=== PATIENT | female | born 1985 | race Two or more races ===

== ENCOUNTER 2020-08-22 10:25 | Outpatient (REF) | payer OTHER, SELFPAY | END 2020-08-22 10:26 | disposition home or self-care (01) | LOC: HO.LAB 10:25 | PROVIDERS: PCP Internal Medicine; Visit Provider Obstetrics & Gynecology | DX: R87.810 Cervical high risk human papillomavirus (HPV) DNA test positive (principal) | CPT/HCPCS: 88305; 99212 ==

== ENCOUNTER → 2020-09-26 15:35 | Outpatient (BNVA) | payer OTHER, SELFPAY | PROVIDERS: PCP Internal Medicine; Visit Provider Obstetrics & Gynecology | DX: R87.810 Cervical high risk human papillomavirus (HPV) DNA test positive (principal) | CPT/HCPCS: 99212 ==

== ENCOUNTER 2022-07-23 10:51 | Outpatient (REF) | payer OTHER, MEDICAID, SELFPAY ==
[2022-07-23 16:02] LABS: CT PCR NOT DETECTED (Not Detect.); NG PCR NOT DETECTED (Not Detect.)
[2022-07-29 04:46] LABS: HPV mRNA E6/E7 rflx Detected (Not Detected)
[2022-07-29 04:56] LABS: HPV 16 RNA NOT DETECTED (NOT DETECTED)
== END 2022-07-23 10:52 | disposition home or self-care (01) ==
LOC: HO.LNP 10:51
PROVIDERS: Visit Provider Obstetrics & Gynecology
DX: Z01.419 Encounter for gynecological examination (general) (routine) without abnormal findings (principal); Z11.51 Encounter for screening for human papillomavirus (HPV); N93.9 Abnormal uterine and vaginal bleeding, unspecified
CPT/HCPCS: 87491; 87591; 87624; 87625; 88142

== ENCOUNTER 2022-08-22 11:31 | Outpatient (REF) | payer OTHER, MEDICAID, SELFPAY ==
--- NOTE | ~2022-08-22 | US_ITS ---
EXAMINATION: US PELVIS CLINICAL INFORMATION: 37-year-old, abnormal uterine bleeding. LMP 07/11/2022 COMPARISON: Ultrasound dated 02/28/2019 TECHNIQUE: Ultrasound of the pelvis is performed using both transabdominal and transvaginal transducers along with Doppler. Transvaginal imaging is performed due to inadequate visualization transabdominally. FINDINGS: Uterus: The uterus is anteverted and measures 8.4 x 4.4 x 5.4 cm. Uterus is mildly globular in appearance with heterogeneous appearing myometrium. The double wall endometrial thickness is 1.1 mm. No visible fibroid. Adnexa: Both ovaries are visualized. There is normal color flow to the adnexa. There is no ovarian torsion. There is no pelvic ascites or fluid collection. Right ovary measures 2.0 x 1.7 x 1.2 cm. Left ovary measures 2.5 x 2.3 x 1.9 cm. US/US pelvic and transvaginal IMPRESSION: Uterus is globular in appearance with heterogeneous appearing myometrium. This is a nonspecific finding but can be seen in the setting of adenomyosis. Recommend further evaluation with pelvic MRI.
== END 2022-08-22 11:32 | disposition home or self-care (01) ==
LOC: HO.US 11:31
PROVIDERS: Visit Provider Obstetrics & Gynecology
DX: N93.9 Abnormal uterine and vaginal bleeding, unspecified (principal)
CPT/HCPCS: 76830; 76856

== ENCOUNTER 2022-09-04 11:18 | Outpatient (REF) | payer OTHER, MEDICAID, SELFPAY | END 2022-09-04 11:19 | disposition home or self-care (01) | LOC: HO.LNP 11:18 | PROVIDERS: Visit Provider Obstetrics & Gynecology | DX: N93.9 Abnormal uterine and vaginal bleeding, unspecified (principal); R87.610 Atypical squamous cells of undetermined significance on cytologic smear of cervix (ASC-US); R87.810 Cervical high risk human papillomavirus (HPV) DNA test positive; I10 Essential (primary) hypertension; E03.9 Hypothyroidism, unspecified | CPT/HCPCS: 57454; 58100; 58110; 81025; 88305 ==

== ENCOUNTER 2022-09-22 | Outpatient (REF) | payer OTHER, MEDICAID, SELFPAY ==
[2022-09-22 09:03] LABS: Hematocrit 36.5 % (37.0-47.0); Hemoglobin 12.1 g/dl (12.0-16.0); Mean Corpuscular HGB Conc 33.2 g/dl (31.0-35.0); Mean Corpuscular Hemoglobin 27.4 pg (27.0-33.0); Mean Corpuscular Volume 82.6 fL (80.0-98.0); Mean Platelet Volume 10.3 fL (9.4-12.3); Platelet Count 308 X10*3/uL (160-400); Red Blood Count 4.42 X10*6/uL (4.20-5.50); Red Cell Distribution Width 12.9 % (11.0-16.0); White Blood Count 7.4 X10*3/uL (4.8-10.8)
[2022-09-22 10:13] LABS: HCG Quantitative < 2 mIU/mL; TSH reflex Free T4 40.64 uIU/mL (0.32-4.0)
[2022-09-22 10:44] LABS: Free T4 (Free Thyroxine) 0.72 ng/dL (0.71-1.85)
== END 2022-09-22 00:01 | disposition home or self-care (01) ==
LOC: HO.LAB
PROVIDERS: Visit Provider Obstetrics & Gynecology
DX: R87.610 Atypical squamous cells of undetermined significance on cytologic smear of cervix (ASC-US) (principal); R87.810 Cervical high risk human papillomavirus (HPV) DNA test positive; N93.9 Abnormal uterine and vaginal bleeding, unspecified
CPT/HCPCS: 36415; 84439; 84443; 84702; 85027

== ENCOUNTER → 2022-09-22 08:06 | Outpatient (BNVA) | payer OTHER, SELFPAY | PROVIDERS: Visit Provider Obstetrics & Gynecology | DX: R87.610 Atypical squamous cells of undetermined significance on cytologic smear of cervix (ASC-US) (principal); R87.810 Cervical high risk human papillomavirus (HPV) DNA test positive; N93.9 Abnormal uterine and vaginal bleeding, unspecified | CPT/HCPCS: 36415; 85027 ==

== ENCOUNTER 2023-02-03 08:16 | Outpatient (REF) | payer OTHER, MEDICAID, SELFPAY ==
[2023-02-03 09:07] LABS: Hematocrit 36.6 % (37.0-47.0); Mean Corpuscular HGB Conc 32.8 g/dl (31.0-35.0); Mean Corpuscular Hemoglobin 27.5 pg (27.0-33.0); Mean Corpuscular Volume 83.8 fL (80.0-98.0); Mean Platelet Volume 10.5 fL (9.4-12.3); Platelet Count 326 X10*3/uL (160-400); Red Blood Count 4.37 X10*6/uL (4.20-5.50); Red Cell Distribution Width 12.9 % (11.0-16.0); White Blood Count 6.6 X10*3/uL (4.8-10.8)
[2023-02-03 09:40] LABS: Alanine Aminotransferase 57 U/L (0-31); Albumin Level 4.3 g/dL (3.5-5.0); Alkaline Phosphatase 92 U/L (39-117); Anion Gap 10 (12-20); Aspartate Amino Transferase 36 U/L (5-31); Bilirubin Total 0.3 mg/dL (0.0-1.0); Blood Urea Nitrogen 6 mg/dL (9-16); Calcium 9.1 mg/dL (8.4-10.2); Carbon Dioxide 29 mmol/L (22-29); Chloride 104 mmol/L (96-108); Cholesterol 246 mg/dL; Estimated Glomerular Filt Rate > 60; Glucose Fasting 89 mg/dL (60-99); HDL Cholesterol 31 mg/dL; Potassium 4.3 mmol/L (3.3-5.1); Sodium 139 mmol/L (135-145); Total Protein 7.2 g/dL (6.5-8.0); Triglycerides 569 mg/dL
[2023-02-03 11:14] LABS: Free T4 (Free Thyroxine) 0.79 ng/dL (0.71-1.85)
[2023-02-03 11:18] LABS: Appearance Urine Clear; Color Urine Yellow; Glucose Urine UA Negative (Negative); Leukocyte Esterase Urine Small (1+) (Negative); Nitrite Urine Negative (Negative); PH 5.5 (5.0-9.0); Specific Gravity - Urine 1.015 (1.005-1.025); UMIC TRIGGER UA YES; Urine Blood Trace (Negative); Urine Ketones Negative (Negative); Urine Protein Negative (Neg-Trace)
[2023-02-03 11:36] LABS: Bacteria Urine Trace (None Seen); Hyaline Casts Urine 0-2 /LPF (0-2); RBC Urine 0-2 /HPF (0-2); WBC Urine 21-50 /HPF (0-5)
== END 2023-02-03 08:17 | disposition home or self-care (01) ==
LOC: HO.LAB 08:16
PROVIDERS: PCP Hospitalist; Visit Provider Hospitalist
DX: Z00.00 Encounter for general adult medical examination without abnormal findings (principal); I10 Essential (primary) hypertension; E03.9 Hypothyroidism, unspecified; N93.9 Abnormal uterine and vaginal bleeding, unspecified
CPT/HCPCS: 36415; 80053; 80061; 81001; 84439; 84443; 85027

== ENCOUNTER 2023-02-20 08:45 | Outpatient (REF) | payer OTHER, MEDICAID, SELFPAY ==
[2023-02-20 09:59] LABS: Appearance Urine Cloudy; Color Urine Yellow; Glucose Urine UA Negative (Negative); Leukocyte Esterase Urine Moderate (2+) (Negative); Nitrite Urine Negative (Negative); PH 5.5 (5.0-9.0); Specific Gravity - Urine 1.015 (1.005-1.025); UMIC TRIGGER UA YES; Urine Blood Trace (Negative); Urine Ketones Negative (Negative); Urine Protein Negative (Neg-Trace)
[2023-02-20 10:04] LABS: Bacteria Urine 1+ (None Seen); Hyaline Casts Urine 0-2 /LPF (0-2); RBC Urine 0-2 /HPF (0-2); WBC Urine 21-50 /HPF (0-5)
[2023-02-20 11:16] LABS: TSH reflex Free T4 9.92 uIU/mL (0.32-4.0)
[2023-02-20 12:13] LABS: Free T4 (Free Thyroxine) 1.02 ng/dL (0.71-1.85)
== END 2023-02-20 08:46 | disposition home or self-care (01) ==
LOC: HO.LAB 08:45
PROVIDERS: PCP Hospitalist; Visit Provider Hospitalist
DX: E03.9 Hypothyroidism, unspecified (principal); Z13.89 Encounter for screening for other disorder
CPT/HCPCS: 36415; 81001; 81003; 84439; 84443

== ENCOUNTER → 2023-02-23 11:35 | Outpatient (BNVA) | payer OTHER, MEDICAID, SELFPAY | PROVIDERS: PCP Hospitalist; Visit Provider Obstetrics & Gynecology | DX: Z13.89 Encounter for screening for other disorder (principal) ==

== ENCOUNTER 2023-06-09 15:23 | Outpatient (AMB) | payer OTHER, MEDICAID, SELFPAY ==
[2023-06-09 15:29] VITALS: BP 144/82; PULSE 95; RESP 12; TEMP 37.4; O2SAT 98; BMI 31.0
--- NOTE | 2023-06-09 15:29 | A.OFFPC_ITS ---
Vital Signs 06/09/23 15:29 06/09/23 15:50 Height 5 ft 6 in Weight 192 lb BMI 31.0 BP 144/82 H 130/80 Blood Pressure Location Lt brachial Lt brachial Position Sitting Sitting Respiration 12 Pulse 95 Pulse Source Pulse Oximeter Temp 99.4 F Temp Source Temporal Artery Scan Pulse Oximetry (%) 98 Oxygen Delivery Method Room Air Intake Visit Reasons: 1 mon fu for htn and new medication Intake Note: Patient states that she has been experiencing bodyaches, headaches, and has a metal like taste every time she eats. Patient states that when she first started taking levothyroxine it was causing her to have a cough but now she states that her body got use to it and shes no longer having that problem. Council Member Required: No Accompanied by: Self / Same As Patient Allergies No Known Allergies [No Known Allergies*] Allergy (Verified 06/09/23 15:44) Medication List - Last Reconciled 06/09/23 by Lyubov Cline CNP blood pressure test kit-large As directed levothyroxine (Synthroid) 125 mcg PO DAILY 1 month lisinopril 5 mg PO BID progesterone micronized (Prometrium) 200 mg PO BEDTIME 10 days Tobacco use date assessed: 01/21/23 Dental Screening Dental Screen Date: 06/09/23 Did you have a dental visit in the last 12 months?: No Did you have a dental problem in the last 6 months where you did not have access to dental care?: No Was dental information given to patient?: Yes HPI HPI Comments History of Present Illness Details 30-year-old female presents for hypertension follow-up She is on Lisinopril 5 mg twice daily which he notes she has been taking as prescribed. She reports fever with a temp of 100-103, headache, body aches, and metallic taste for the past 3 days. She denies sore throat, cough, fatigue, weakness. She denies sick contact. She denies viral testing. [facility] Medical History Cholecystectomy planned History of LEEP (loop electrosurgical excision procedure) of cervix complicating Hypertension Hypothyroidism Surgical History Hx of cholecystectomy Social History Household Members: Significant Other Housing: Apartment Alcohol intake: current Alcohol intake frequency: holidays/special occasions only Patient Tobacco Use Status: Never used Tobacco e-Cigarette/Vaping Use: Never Used service: No Current occupational status: employed Current occupation: [employer] Sexual orientation: Straight/Heterosexual Gender identity: Female Cognitive needs: No Hearing needs: No Vision needs: No Female Reproductive History Menstrual Age of Menarche: 13 Questionnaire Thrive Questionnaire Date Thrive assessed: 01/21/23 MARTHA-7 AMB Questionnaire MARTHA-7 Date MARTHA - 7 assessed: 01/21/23 Source: Developed by Drs. Rinku Horner, Carina Alvarez, Dev Mccarthy and colleagues, with an educational jrezy from [employer]. Review of Systems Const Details: Const Denies chills, Denies fatigue, Reports fever(s), Reports headache(s) and Denies weakness ENT Reports as per HPI Card Denies chest pain, Denies lightheadedness, Denies dyspnea and Denies other (Palpitations) Resp Denies cough, Denies dyspnea, Denies wheezing and Denies other ( shortness of breath) GI Denies abdominal pain, Denies melena, Denies hematochezia, Denies change in bowel habits, Denies dyspepsia and Denies nausea Denies hematuria and Denies dysuria Musc Denies abnormal gait, Reports myalgias, Denies arthralgias, Denies numbness and Denies tingling Skin/Breast Denies rash, Denies unusual bruising and Denies wounds Neuro Denies abnormal gait, Denies dizziness, Reports headache(s), Denies memory loss, Denies numbness, Denies Sensory deficit (Neuro), Denies tingling and Denies weakness Psych Denies anxiety, Denies depression, Denies memory loss Endo Denies cold intolerance, Denies fatigue, Denies heat intolerance, Denies polydipsia and Denies polyuria Aller/Immun Denies wheezing Physical exam (Primary Care) Vital Signs: Last Vital Signs Temp 99.4 F 06/09/23 15:29 Pulse 95 06/09/23 15:29 Resp 12 06/09/23 15:29 BP 144/82 H 06/09/23 15:29 Pulse Ox 98 06/09/23 15:29 Oxygen Delivery Method Room Air 06/09/23 15:29 BMI result Body Mass Index 31.0 Tobacco/Smoking Status: Tobacco use Status Tobacco use date assessed 01/21/23 06/09/23 15:39 Patient Tobacco Use Status Never used Tobacco 06/09/23 15:39 e-Cigarette/Vaping Use Never Used 06/09/23 15:39 Thrive Assessment: Date of Thrive Assessment Date Thrive assessed 01/21/23 06/09/23 15:39 Const Other: General: no acute distress and well developed Nutritional Appearance: well nourished Orientation/consciousness: patient oriented x3 HENMT Head is normocephalic Bilateral ear canal and TM are normal Nasal turbinates and oropharynx are pink and moist Sinuses are nontender with palpation No auricular or cervical lymphadenopathy Eyes General: appearance normal, both eyes and all related structures Pupils: Equal, round and reactive pupils present EOM: EOMs intact bilaterally Resp Effort & Inspection: normal respiratory effort Auscultation: clear to auscultation bilaterally Cardio Rate: regular rate Rhythm: regular rhythm Heart sounds: S1 normal heart sound present, S2 normal heart sound present, no gallops, no murmurs and no rubs GI Palpation (GI): No Abdominal aortic bruit present, Soft to palpation, nontender, No hepatosplenomegaly present and No Rebound tenderness present Auscultation: normal bowel sounds General: Yes no CVA tenderness Back/Spine/Pelvis Back: no CVA tenderness Cervical Spine: cervical ROM normal and No Cervical spine tenderness Thoracic/Lumbar Spine: thoraco-lumbar ROM normal, No pain with thoraco-lumbar ROM, No thoracic spinal tenderness and No lumbar spinal tenderness Extrem General: Yes normal to inspection, No edema and No calf tenderness Skin General: warm and dry. Normal skin color. Normal skin turgor Neuro General: patient oriented x3, gait normal and no focal neuro deficit Cranial nerves: Yes Equal, round and reactive pupils present Cognition (Neuro): normal cognition Gait exam (Neuro): Normal gait present Sensory Exam: No Sensory deficit (Neuro) Psych Appearance: grossly normal Affect: normal affect Attitude: cooperative Thought process: Normal thought process present Assessment and Plan Assessment & Plan (1) Hypertension: Code(s): I10 - Essential (primary) hypertension Plan: Resting blood pressure is 130/80, within goal of less than 140/90 Continue with current treatment regimen Low-sodium diet encouraged Follow-up with PCP in 3 months or return sooner with concerns or symptoms Verbalized understanding and agreed with treatment plan. (2) Hypothyroidism: Code(s): E03.9 - Hypothyroidism, unspecified Plan: TSH was 9.92 and free T4 was normal in January. She notes her levothyroxine dose was not increased TSH/T4 ordered Continue with current treatment regimen Will review TSH/T4 results and make changes to current treatment regimen if warranted Verbalized understanding and agreed with treatment plan. (3) Viral infection: Code(s): B34.9 - Viral infection, unspecified Plan: Reports fever with a temp of 100-103, headache, body aches, and metallic taste for the past 3 days. Likely viral illness though possibly allergies. No exam evidence of bacterial infection Viral illness There is no antibiotic medication for viruses.? They must run their course.? Most average 5-7 days but 7-10 days is not uncommon and up to 14 days is still possible.? A cough is often the last symptom to resolve and this can last for weeks in some cases. Rest Hydrate well -? Drink plenty of fluids.? Especially water. Tylenol or ibuprofen for muscle aches, headache, fever/discomfort Cannot rule out COVID-19/RSV/Flu infection CBC ordered Nasal swab acquired and will be sent to the lab Return for new or worsening symptoms Verbalized understanding and agreed with treatment plan. Orders: Orders TSH reflex Free T4 Today I10 - Essential (primary) hypertension SARS-CoV2/FLU/RSV Today B34.9 - Viral infection, unspecified Complete Blood Count Auto Diff Today B34.9 - Viral infection, unspecified Coding Level of Care Code Est Pt Level 3 (84776) Diagnoses Hypertension I10 Hypothyroidism E03.9 Viral infection B34.9 Time Spent (min) 25
[2023-06-09 15:50] VITALS: BP 130/80
== END 2023-06-09 16:05 | disposition home or self-care (01) ==
PROVIDERS: PCP Hospitalist; Visit Provider Nurse Practitioner Family
DX: I10 Essential (primary) hypertension (principal); E03.9 Hypothyroidism, unspecified; B34.9 Viral infection, unspecified
CPT/HCPCS: 99213

== ENCOUNTER 2023-06-09 16:09 | Outpatient (REF) | payer OTHER, MEDICAID, SELFPAY ==
[2023-06-09 17:05] LABS: MANUAL DIFF FLAG NO
[2023-06-09 17:38] LABS: Basophils Percent Auto 0.6 % (0-2); Eosinophils Percent Auto 0.4 % (0-4); Hematocrit 38.2 % (37.0-47.0); Hemoglobin 12.7 g/dl (12.0-16.0); Imm Gran Abs Auto 0.02 X10*3/uL (0.00-0.03); Imm Gran Pct Auto 0.4 % (0.0-0.4); Lymphocytes Absolute Auto 1.2 X10*3/uL (1.2-4.9); Lymphocytes Percent Auto 23.5 % (20-40); Mean Corpuscular HGB Conc 33.2 g/dl (31.0-35.0); Mean Corpuscular Hemoglobin 27.1 pg (27.0-33.0); Mean Corpuscular Volume 81.4 fL (80.0-98.0); Mean Platelet Volume 9.9 fL (9.4-12.3); Monocytes Absolute Auto 0.3 X10*3/uL (0.1-1.2); Monocytes Percent Auto 5.8 % (2-11); Neutrophils Absolute Auto 3.5 x10*3/uL (2.0-8.3); Neutrophils Percent Auto 69.3 % (45-73); Platelet Count 259 X10*3/uL (160-400); Red Blood Count 4.69 X10*6/uL (4.20-5.50); Red Cell Distribution Width 13.2 % (11.0-16.0)
[2023-06-09 18:11] LABS: TSH reflex Free T4 6.99 uIU/mL (0.32-4.0)
[2023-06-09 18:49] LABS: Free T4 (Free Thyroxine) 0.91 ng/dL (0.71-1.85)
[2023-06-10 16:26] LABS: Influenza A PCR NEGATIVE (Negative); Influenza B PCR NEGATIVE (Negative); Resp Syncy Virus RNA Qual PCR NEGATIVE (Negative); SARS COV2 PCR INHOUSE NEGATIVE (Negative)
== END 2023-06-09 16:10 | disposition home or self-care (01) ==
LOC: HO.LAB 16:09
PROVIDERS: PCP Hospitalist; Visit Provider Nurse Practitioner Family
DX: B34.9 Viral infection, unspecified (principal); I10 Essential (primary) hypertension; Z20.822 Contact with and (suspected) exposure to COVID-19
CPT/HCPCS: 0241U; 36415; 84439; 84443; 85025

== ENCOUNTER 2023-09-02 13:46 | Outpatient (AMB) | payer OTHER, SELFPAY ==
[2023-09-02 13:48] VITALS: BP 120/64; PULSE 83; RESP 13; TEMP 37.2; O2SAT 97; BMI 30.8
--- NOTE | 2023-09-02 13:48 | MHC.PC.OV ---
Vital Signs 09/02/23 13:48 Height 5 ft 6 in Weight 191 lb BMI 30.8 BP 120/64 Blood Pressure Location Rt brachial Position Sitting Respiration 13 Pulse 83 Pulse Source Pulse Oximeter Temp 98.9 F Temp Source Oral Pulse Oximetry (%) 97 Oxygen Delivery Method Room Air Intake Visit Reasons: ? UTI Intake Note: Patient is here for evaluation of abdominal pain, burning with urination x1 day. Patient reports her and her have increased their sexual activity due to trying to have a baby and is likely the contributing factor to her urinary symptoms. Estate Planning Paralegal Required: No Accompanied by: Self / Same As Patient Allergies No Known Allergies [No Known Allergies*] Allergy (Verified 09/02/23 14:43) Medication List - Last Reconciled 09/02/23 by Lyubov Cline CNP blood pressure test kit-large As directed levothyroxine (Synthroid) 137 mcg PO DAILY 90 days lisinopril 5 mg PO BID 90 days Tobacco use date assessed: 01/21/23 HPI HPI Comments History of Present Illness Details 38-year-old female presents with complaints of suprapubic pain, urinary frequency, and burning at the end of urination. She notes that her symptoms started last night. She notes that she was nauseous and vomited yellow liquid on her way here. She notes that she has been sexually active, more than usual recently, with her as she is trying to get . She admits to wiping from front to back. She also admits to wearing nylon underwear sometimes. She denies bloody urine or discharge with urination. She denies fever, chills, body aches, fatigue, or weakness. [facility] Medical History Cholecystectomy planned History of LEEP (loop electrosurgical excision procedure) of cervix complicating Hypertension Hypothyroidism Surgical History Hx of cholecystectomy Social History Household Members: Significant Other Housing: Apartment Alcohol intake: current Alcohol intake frequency: holidays/special occasions only Patient Tobacco Use Status: Never used Tobacco e-Cigarette/Vaping Use: Never Used service: No Current occupational status: employed Current occupation: [employer] Sexual orientation: Straight/Heterosexual Gender identity: Female Cognitive needs: No Hearing needs: No Vision needs: No Female Reproductive History Menstrual Age of Menarche: 13 Questionnaire Thrive Questionnaire Date Thrive assessed: 01/21/23 MARTHA-7 AMB Questionnaire MARTHA-7 Date MARTHA - 7 assessed: 01/21/23 Source: Developed by Drs. Rinku Horner, Carina Alvarez, Dev Mccarthy and colleagues, with an educational jerzy from [facility]. Review of Systems Const Details: Const Denies chills, Denies fatigue, Denies fever(s), Denies headache(s) and Denies weakness ENT Denies dizziness and Denies headache(s) Card Denies chest pain, Denies lightheadedness, Denies dyspnea and Denies other (Palpitations) Resp Denies cough, Denies dyspnea, Denies wheezing and Denies other ( shortness of breath) GI Reports suprapubic pain, Denies melena, Denies hematochezia, Denies change in bowel habits, Denies dyspepsia and Denies nausea Reports as per HPI Musc Denies abnormal gait, Denies myalgias, Denies arthralgias, Denies numbness and Denies tingling Skin/Breast Denies rash, Denies unusual bruising and Denies wounds Neuro Denies abnormal gait, Denies dizziness, Denies headache(s), Denies memory loss, Denies numbness, Denies Sensory deficit (Neuro), Denies tingling and Denies weakness Psych Denies anxiety, Denies depression, Denies memory loss Endo Denies cold intolerance, Denies fatigue, Denies heat intolerance, Denies polydipsia and Denies polyuria Aller/Immun Denies wheezing Physical exam (Primary Care) Vital Signs: Last Vital Signs Temp 98.9 F 09/02/23 13:48 Pulse 83 09/02/23 13:48 Resp 13 09/02/23 13:48 BP 120/64 09/02/23 13:48 Pulse Ox 97 09/02/23 13:48 Oxygen Delivery Method Room Air 09/02/23 13:48 BMI result Body Mass Index 30.8 Tobacco/Smoking Status: Tobacco use Status Tobacco use date assessed 01/21/23 09/02/23 13:59 Patient Tobacco Use Status Never used Tobacco 09/02/23 13:59 e-Cigarette/Vaping Use Never Used 09/02/23 13:59 Thrive Assessment: Date of Thrive Assessment Date Thrive assessed 01/21/23 09/02/23 13:59 Const Other: General: no acute distress and well developed Nutritional Appearance: well nourished Orientation/consciousness: patient oriented [facility]: Yes normocephalic and Yes atraumatic Eyes General: appearance normal, both eyes and all related structures Pupils: Equal, round and reactive pupils present EOM: EOMs intact bilaterally Resp Effort & Inspection: normal respiratory effort Auscultation: clear to auscultation bilaterally Cardio Rate: regular rate Rhythm: regular rhythm Heart sounds: S1 normal heart sound present, S2 normal heart sound present, no gallops, no murmurs and no rubs GI Palpation (GI): No Abdominal aortic bruit present, Soft to palpation, tender suprapubic region, No hepatosplenomegaly present and No Rebound tenderness present Auscultation: normal bowel sounds General: Yes no CVA tenderness Back/Spine/Pelvis Back: no CVA tenderness Cervical Spine: cervical ROM normal and No Cervical spine tenderness Thoracic/Lumbar Spine: thoraco-lumbar ROM normal, No pain with thoraco-lumbar ROM, No thoracic spinal tenderness and No lumbar spinal tenderness Extrem General: Yes normal to inspection, No edema and No calf tenderness Skin General: warm and dry. Normal skin color. Normal skin turgor Neuro General: patient oriented x3, gait normal and no focal neuro deficit Cranial nerves: Yes Equal, round and reactive pupils present Cognition (Neuro): normal cognition Gait exam (Neuro): Normal gait present Sensory Exam: No Sensory deficit (Neuro) Psych Appearance: grossly normal Affect: normal affect Attitude: cooperative Thought process: Normal thought process present Results AMB Urinalysis Dipstick UR Leukocytes Large Last Edit by Ilene Campos CMA on 09/02/23 14:05 UR Nitrite Positive Last Edit by Ilene Campos CMA on 09/02/23 14:05 UR Urobilinogen Normal Last Edit by Ilene Campos CMA on 09/02/23 14:05 UR Protein 300 Last Edit by Ilene Campos CMA on 09/02/23 14:05 UR Ph 5.5 Last Edit by Ilene Campos CMA on 09/02/23 14:05 UR Blood Large Last Edit by Ilene Campos CMA on 09/02/23 14:05 UR Specific [place] 1.025 Last Edit by Ilene Campos CMA on 09/02/23 14:05 UR Ketone Negative Last Edit by Ilene Campos CMA on 09/02/23 14:05 UR Bilirubin Negative Last Edit by Ilene Campos CMA on 09/02/23 14:05 UR Glucose Negative Last Edit by Ilene Campos CMA on 09/02/23 14:05 AMB Test Urine AMB Test Urine Negative Last Edit by Ilene Campos CMA on 09/02/23 14:09 Results Reviewed Results Reviewed: Laboratory Last Values Urine pH (Clinic) 5.5 09/02/23 14:00 Specific [place] (Clinic) 1.025 09/02/23 14:00 Ur Protein (Clinic) 300 09/02/23 14:00 Ur Ketones (Clinic) Negative 09/02/23 14:00 Urine Blood (Clinic) Large 09/02/23 14:00 Urine Nitrite Positive 09/02/23 14:00 Urine Bilirubin (Clinic) Negative 09/02/23 14:00 Urobilinogen (Clinic) Normal 09/02/23 14:00 Leukocyte Esterase (Clinic) Large 09/02/23 14:00 Urine Glucose (Clinic) Negative 09/02/23 14:00 Tst Clinic Negative 09/02/23 14:00 Assessment and Plan Assessment & Plan (1) UTI (urinary tract infection): Code(s): N39.0 - Urinary tract infection, site not specified Qualifiers: Encounter type: initial encounter Plan: Patient present with suprapubic pain, urinary frequency, and burning with urination since yesterday Suprapubic tenderness to palpation Urine dip is positive for leukocytes, nitrite, RBC, and protein; negative hCG Macrobid and Pyridium ordered. Take as prescribed Adequate hydration encouraged Advised to avoid wearing nylon underwear Encouraged to slow down on sexual activities until fully healed Will send urine to the lab for culture and sensitivity Return with worsening or new symptoms Verbalized understanding and agreed with treatment plan. Orders: Orders AMB Urinalysis Dipstick Today Z13.9 - Encounter for screening, unspecified AMB HCG Urine Test Today R35.0 - Frequency of micturition UA CC w/rflx Micro + Cult Today N39.0 - Urinary tract infection, site not specified Medications: New phenazopyridine (Pyridium) 100 mg PO TID PRN 6 tabs 0RF pain 2 days nitrofurantoin monohyd/m-cryst 100 mg (Macrobid) must administer with a meal/food 100 mg PO Q12H 5 days 10 caps 0RF Coding Level of Care Code Est Pt Level 3 (50154) Diagnoses UTI (urinary tract infection) N39.0 Encounter type: initial encounter
== END 2023-09-02 14:57 | disposition home or self-care (01) ==
PROVIDERS: PCP Hospitalist; Visit Provider Nurse Practitioner Family
DX: N39.0 Urinary tract infection, site not specified (principal); R35.0 Frequency of micturition; Z32.02 Encounter for pregnancy test, result negative
CPT/HCPCS: 81002; 81025; 99213

== ENCOUNTER 2023-09-02 15:03 | Outpatient (REF) | payer OTHER, SELFPAY ==
[2023-09-03 12:40] LABS: Appearance Urine Turbid; Color Urine Dark Yellow; Glucose Urine UA Negative (Negative); Leukocyte Esterase Urine Large (3+) (Negative); Nitrite Urine Positive (Negative); PH 5.5 (5.0-9.0); UMIC TRIGGER UACC YES; Urine Blood Large (3+) (Negative); Urine Ketones Trace mg/dL (Negative); Urine Protein 300 (3+) mg/dL (Neg-Trace)
[2023-09-03 12:47] LABS: Bacteria Urine 4+ (None Seen); RBC Urine >20 /HPF (0-2); Squamous Epithelial Cell Urine 0-2 /HPF (0-2); UACC Culture Trigger YES; WBC Urine >50 /HPF (0-5)
== END 2023-09-02 15:04 | disposition home or self-care (01) ==
LOC: HO.LAB 15:03
PROVIDERS: Visit Provider Nurse Practitioner Family
DX: N39.0 Urinary tract infection, site not specified (principal)
CPT/HCPCS: 81001; 87086; 87088; 87186

== ENCOUNTER 2024-01-27 12:03 | Outpatient (AMB) | payer OTHER, SELFPAY ==
[2024-01-27 12:03] VITALS: BP 120/74; BMI 30.7
--- NOTE | 2024-01-27 12:03 | MHC.OFFVIS ---
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 No complaints. Last Pap/HPV was in 07/17 was ascus/HPV positive, colpo/biopsy was QUETA 1 [facility] Medical History History of LEEP (loop electrosurgical excision procedure) of cervix complicating Cholecystectomy planned Hypothyroidism Hypertension Surgical History Hx of cholecystectomy Family History Mother Diabetes HTN (hypertension) Social History Household Members: Significant Other Housing: Apartment Alcohol intake: current Alcohol intake frequency: holidays/special occasions only Patient Tobacco Use Status: Never used Tobacco e-Cigarette/Vaping Use: Never Used service: No Current occupational status: employed Current occupation: [employer] Sexual orientation: Straight/Heterosexual Gender identity: Female Cognitive needs: No Hearing needs: No Vision needs: No Female Reproductive History Menstrual Age of Menarche: 13 Duration of menses: 6-7 days Date of last menstrual period: 01/05/24 Total pregnancies: 0 Date of last pap smear: 07/24/22 Review of Systems Const All systems reviewed & are unremarkable except as noted in HPI and below Card Reports as per HPI Resp Reports as per HPI GI Reports as per HPI and Reports no additional complaints Reports as per HPI Physical Exam Vital Signs: Last Vital Signs BP 120/74 01/27/24 12:03 BMI result Body Mass Index 30.7 Const General: cooperative, healthy appearing and comfortable Chest Chest palpation & inspection: normal inspection of the chest and normal palpation of entire chest wall Breast/axilla inspection: normal inspection of the breasts and normal inspection of the axillae Breast/axilla palpation: normal palpation of the breasts, normal palpation of the axillae and no axillary lymphadenopathy Resp Effort & Inspection: normal respiratory effort Auscultation: clear to auscultation bilaterally Percussion: percussion normal Cardio Palpation: normal PMI Rate: regular rate Rhythm: regular rhythm Heart sounds: no murmurs and no rubs Peripheral pulses: Peripheral pulses 2+ throughout GI Inspection: Yes normal to inspection Palpation (GI): Soft to palpation, nontender, no guarding, not rigid and No hepatosplenomegaly present Percussion: Yes normal to percussion Auscultation: normal bowel sounds Rectal Exam - Female: deferred General: Yes bladder normal to palpation External Female Exam: No lesion Speculum Exam - Vagina: normal appearance of the vagina, normal palpation, normal vaginal discharge and not erythematous Speculum Exam - Cervix: normal appearance of the cervix and normal palpation Bimanual exam- vagina & uterus: normal bimanual exam, normal palpation, uterine size normal, bladder normal to palpation, consistency normal and normal palpation Bimanual Exam- Adnexa, other: normal adnexae, no masses and no tenderness Assessment & Plan Assessment & Plan (1) Well woman exam: Comment: 09/16 QUETA 1 Code(s): Z01.419 - Encounter for gynecological examination (general) (routine) without abnormal findings Plan: Cotesting done. Counseled the patient about the recommended dietary allowance of 1000 mg of Calcium & 600 IU of vitamin D. The patient was instructed to perform monthly self-breast exams and to schedule an annual exam in a year; All questions answered and the patient verbalized understanding. Instructed the patient to schedule annual exam in a year Coding Level of Care Code New Pt Prev Care 18-39yr([id number] Diagnoses Well woman exam Z01.419
== END 2024-01-27 13:43 | disposition home or self-care (01) ==
LOC: HO.HWS 12:03
PROVIDERS: PCP Hospitalist; Visit Provider Obstetrics & Gynecology
DX: Z01.419 Encounter for gynecological examination (general) (routine) without abnormal findings (principal)
CPT/HCPCS: 99395

== ENCOUNTER 2024-01-27 12:03 | Outpatient (REF) | payer OTHER, SELFPAY ==
[2024-02-02 04:18] LABS: HPV mRNA E6/E7 rflx Not Detected (Not Detected)
== END 2024-01-27 12:04 | disposition home or self-care (01) ==
LOC: HO.LNP 12:03
PROVIDERS: PCP Hospitalist; Visit Provider Obstetrics & Gynecology
DX: Z01.419 Encounter for gynecological examination (general) (routine) without abnormal findings (principal); Z11.51 Encounter for screening for human papillomavirus (HPV)
CPT/HCPCS: 87624; 88142

== ENCOUNTER 2024-03-09 19:18 | Emergency (ER) | payer OTHER, SELFPAY ==
[2024-03-09 19:28] VITALS: BP 184/100; PULSE 71; RESP 16; TEMP 36.9; O2SAT 100; BMI 29.9
--- NOTE | 2024-03-09 19:31 | ED.GENADULT ---
HPI - General Adult General Chief complaint: General Medical Stated complaint: blood clot under tongue, L arm numb Time Seen by Provider: 03/10/24 01:02 Source: patient Mode of arrival: ambulatory Limitations: no limitations History of Present Illness HPI narrative: Patient comes to the emergency room complaining of a cyst that popped on her tongue. Patient states that when she arrived to emergency room, she was feeling very anxious, had high blood pressure, states she forgot to take her lisinopril dose of 5 mg at home. Had right arm tingling which the resolved. At this time, patient is asymptomatic. Patient states that the cyst under the tongue is no longer present, has no chest pain or shortness of breath, known paresthesias. Related Data Previous Rx's ?Medication ?Instructions ?Recorded blood pressure test kit-large #1 ea 01/21/23 lisinopril 5 mg tablet 5 mg PO BID 90 days #180 tabs 08/02/23 levothyroxine 137 mcg tablet 137 mcg PO DAILY 90 days #90 tabs 02/18/24 (Synthroid) Allergies Allergy/AdvReac Type Severity Reaction Status Date / Time No Known Allergies Allergy Verified 03/09/24 19:29 [No Known Allergies*] Review of Systems Review of Systems: Constitutional : No Weight loss, No Fever, No Chills, No Night Sweats, No Fatigue, No Malaise ENT/Mouth: complaining of a cyst under the tongue which popped by itself, No Hearing loss, No Ear Pain, No Nasal Congestion, No Sinus Pain, No Hoarseness, No sore throat, No Rhinorrhea, No Swallowing Difficulty Eyes: No Eye Pain, No Swelling, No Redness, No Foreign Body, No Discharge, No Vision Changes Cardiovascular : No Chest Pain, No SOB, No Dyspnea on Exertion, No Orthopnea, No Edema, No Palpitations Respiratory : No Cough, No Sputum, No Wheezing, No Smoke Exposure, No Dyspnea Gastrointestinal : No Nausea, No Vomiting, No Diarrhea, No Constipation, No abdominal Pain, No Hematochezia, No Melena Genitourinary : no irregular bleeding, No Dysuria, No Urinary Frequency, No Hematuria, No Urinary Incontinence, No Urgency, No Flank Pain, No Urinary Flow Changes, No Hesitancy Musculoskeletal : No joint pain, No Myalgias, No Joint Swelling Skin : No Skin Lesions, No rash Neuro : No Weakness, No Numbness, complaining of right arm Paresthesias, No Loss of Consciousness, No Dizziness, No Headache Psych : No Anxiety/Panic, No Depression, No SI/HI/AH/VH, No Social Issues, Heme/Lymph: No Bruising, No Bleeding,No Lymphadenopathy Endocrine : No Polyuria, No Polydipsia, No Temperature Intolerance [facility] Past Medical History Medical History History of LEEP (loop electrosurgical excision procedure) of cervix complicating Cholecystectomy planned Hypothyroidism Hypertension Surgical History Hx of cholecystectomy Family History Family History Mother Diabetes HTN (hypertension) Social History Social History Household Members: Significant Other Housing: Apartment Alcohol intake: current Alcohol intake frequency: holidays/special occasions only Patient Tobacco Use Status: Never used Tobacco e-Cigarette/Vaping Use: Never Used Advance Directives: No Advance Directives Information Provided: No service: No Current occupational status: employed Current occupation: [employer] Sexual orientation: Straight/Heterosexual Gender identity: Female Cognitive needs: No Hearing needs: No Vision needs: No Physical Exam ED Vital Signs: Vital Signs - 24 hr 03/09/24 19:28 03/09/24 22:11 Temperature 98.4 F 97.3 F Pulse Rate 71 68 Respiratory Rate 16 20 Blood Pressure 184/100 H 128/95 H Pulse Oximetry 100 100 Oxygen Delivery Method Room Air Room Air BMI result Body Mass Index 29.9 Const Other: Appearance: Alert. Oriented X3. No acute distress. Eyes: Pupils equal, round and reactive to light. ENT: Pharynx normal. No cysts present on the tongue or in the lips Neck: Normal inspection. Neck supple. No lymph nodes noted. No crepitus CVS: Normal heart rate and rhythm. Pulses normal. Normal S1 and S2 Respiratory: No respiratory distress. Breath sounds normal. No Wheezing. No rales Abdomen: Soft and nontender. No rigidity. No distention. Skin: Skin warm and dry. Normal skin color. Normal skin turgor. Extremities: No lower extremity edema. No Lacerations. No Rash Neuro: Oriented X 3. No motor deficit. No sensory deficit. Moving all extremities. No slurred speech. CN 2 through 12 grossly intact NIH score 0 Psych: calm, cooperative, normal affect NIH Stroke Scale Level of Consciousness: Alert Level of Consciousness Questions: Answers both questions correctly Level of Consciousness Commands: Performs both tasks correctly Best Gaze: Normal Visual: No visual loss Facial Palsy: Normal Motor Arm (Right): No drift Motor Arm (Left): No drift Motor Leg (Right): No drift Motor Leg (Left): No drift Limb Ataxia: Absent Sensory: Normal Best Language: No aphasia Dysarthia: Normal Extinction and Inattention: No abnormality Score: 0 Course Course Course Narrative: This is a rapid medical exam performed by Jennifer Merlos NP: Additional HPI, ROS, PE not included below will be deferred to primary provider. Patient is a 38-year-old female presenting to the ED with complaint of dizziness and left arm numbness, hx HTN but did not take her lisinopril today, normally takes 5mg BID. Also states that when she was at work she was stuck in a vent and when she came out she noticed a small swollen area under her tongue. Hypertensive in triage. Plan: EKG labs Medical Decision Making Medical Decision Making [facility] Narrative: -I discussed the labs with the patient, patient hematology, chemistry, troponin and hCG negative. -my interpretation of EKG: Normal sinus rhythm, heart rate 68, no ST segment depression or elevation, nonspecific T-wave inversion in lead III, QTC 406 -at this time, patient is asymptomatic. Patient ready for discharge. -when patient came in, patient has had anxiety and high blood pressure. Which resolved, blood pressure now 128/95 without any medication. Differential Diagnosis Differential Diagnoses: The differential diagnosis associated with the presentation includes (Oral mucocele) Lab Data [facility] Lab Attestation statement: I reviewed the patient's lab results. 03/09/24 19:46 03/09/24 19:46 Labs: Lab Results 03/09/24 Range/Units 19:46 WBC 7.7 (4.8-10.8) X10*3/uL RBC 4.05 L (4.20-5.50) X10*6/uL Hgb 11.0 L (12.0-16.0) g/dl Hct 33.0 L (37.0-47.0) % MCV 81.5 (80.0-98.0) fL MCH 27.2 (27.0-33.0) pg MCHC 33.3 (31.0-35.0) g/dl RDW 13.3 (11.0-16.0) % Plt Count 271 (160-400) X10*3/uL MPV 9.9 (9.4-12.3) fL Immature Gran % (Auto) 0.3 (0.0-0.4) % Neut % (Auto) 58.3 (45-73) % Lymph % (Auto) 33.9 (20-40) % [place] % (Auto) 5.9 (2-11) % Eos % (Auto) 0.9 (0-4) % Baso % (Auto) 0.7 (0-2) % Lymph # (Auto) 2.6 (1.2-4.9) X10*3/uL [place] # (Auto) 0.5 (0.1-1.2) X10*3/uL Eos # (Auto) 0.1 (0.0-0.4) X10*3/uL Baso # (Auto) 0.1 (0.0-0.2) X10*3/uL Abs Immat Gran (auto) 0.02 (0.00-0.03) X10*3/uL Absolute Neuts (auto) 4.5 (2.0-8.3) x10*3/uL Absolute Nucleated RBC 0.000 (0.0-0.012) X10*3/uL Nucleated RBC % (auto) 0.0 (0.0-0.2) /100WBC Sodium 138 (135-145) mmol/L Potassium 4.3 (3.3-5.1) mmol/L Chloride 108 (96-108) mmol/L Carbon Dioxide 23 (22-29) mmol/L Anion Gap 11 L (12-20) BUN 14 (9-16) mg/dL Creatinine 0.72 (0.5-1.4) mg/dL Estim Creat Clear Calc 115.6 Estimated GFR > 60 Random Glucose 93 (60-115) mg/dL Calcium 9.0 (8.4-10.2) mg/dL Total Bilirubin 0.2 (0.0-1.0) mg/dL AST 19 (5-31) U/L ALT 15 (0-31) U/L Alkaline Phosphatase 85 (39-117) U/L Troponin I High Sens < 2.7 (<3.5-17.0) ng/L Total Protein 7.6 (6.5-8.0) g/dL Albumin 4.3 (3.5-5.0) g/dL Beta HCG, Quant < 2 mIU/mL Independent Interpretation I performed an independent interpretation of an: EKG Discharge Plan 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 If you have any worsening or new symptoms, please return to the emergency room or call 911 Prescriptions: No Action lisinopril 5 mg tablet 5 mg PO BID 90 Days Qty: 180 3RF levothyroxine [Synthroid] 137 mcg tablet 137 mcg PO DAILY 90 Days Qty: 90 1RF (DME) blood pressure test kit-large Kit See Rx Instructions .ROUTE .MEDSUPPLY Qty: 1 0RF Rx Instructions: As directed Print Language: Wolof
--- NOTE | 2024-03-09 19:33 | ECG_ITS ---
Test Reason : DIZZINESS Blood Pressure : / mmHG Vent. Rate : 068 BPM Atrial Rate : 068 BPM P-R Int : 166 ms QRS Dur : 086 ms QT Int : 382 ms P-R-T Axes : 057 081 021 degrees QTc Int : 406 ms Normal sinus rhythm with sinus arrhythmia Normal ECG No previous ECGs available Referred By: Sheila Merlos Electronically Signed By:NATAN RODRIGUEZ MD
[2024-03-09 19:51] LABS: Basophils Absolute Auto 0.1 X10*3/uL (0.0-0.2); Basophils Percent Auto 0.7 % (0-2); Eosinophils Absolute Auto 0.1 X10*3/uL (0.0-0.4); Eosinophils Percent Auto 0.9 % (0-4); Imm Gran Abs Auto 0.02 X10*3/uL (0.00-0.03); Imm Gran Pct Auto 0.3 % (0.0-0.4); Lymphocytes Absolute Auto 2.6 X10*3/uL (1.2-4.9); Lymphocytes Percent Auto 33.9 % (20-40); MANUAL DIFF FLAG NO; Mean Corpuscular HGB Conc 33.3 g/dl (31.0-35.0); Mean Corpuscular Hemoglobin 27.2 pg (27.0-33.0); Mean Corpuscular Volume 81.5 fL (80.0-98.0); Mean Platelet Volume 9.9 fL (9.4-12.3); Monocytes Absolute Auto 0.5 X10*3/uL (0.1-1.2); Monocytes Percent Auto 5.9 % (2-11); Neutrophils Absolute Auto 4.5 x10*3/uL (2.0-8.3); Neutrophils Percent Auto 58.3 % (45-73); Platelet Count 271 X10*3/uL (160-400); Red Blood Count 4.05 X10*6/uL (4.20-5.50); Red Cell Distribution Width 13.3 % (11.0-16.0); White Blood Count 7.7 X10*3/uL (4.8-10.8)
[2024-03-09 20:12] LABS: Alanine Aminotransferase 15 U/L (0-31); Albumin Level 4.3 g/dL (3.5-5.0); Alkaline Phosphatase 85 U/L (39-117); Anion Gap 11 (12-20); Aspartate Amino Transferase 19 U/L (5-31); Bilirubin Total 0.2 mg/dL (0.0-1.0); Blood Urea Nitrogen 14 mg/dL (9-16); Carbon Dioxide 23 mmol/L (22-29); Chloride 108 mmol/L (96-108); Creatinine Clr Calc Pharmacy 115.6; Estimated Glomerular Filt Rate > 60; Glucose Random 93 mg/dL (60-115); Potassium 4.3 mmol/L (3.3-5.1); Sodium 138 mmol/L (135-145); Total Protein 7.6 g/dL (6.5-8.0)
[2024-03-09 20:15] LABS: HCG Quantitative < 2 mIU/mL; Troponin-I High Sensitivity < 2.7 ng/L (<3.5-17.0)
[2024-03-09 22:11] VITALS: BP 128/95; PULSE 68; RESP 20; TEMP 36.3; O2SAT 100
--- NOTE | 2024-03-10 01:01 | PC.NURSE ---
pt states the bump under her tongue has reduced in size when pt bp came down to 128/95
[2024-03-10 01:20] VITALS: BP 133/71
[2024-03-10] MEDS: lisinopriL 5 MG TABLET PO (01:20)
[2024-03-10 01:23] VITALS: BP 133/71; PULSE 62; RESP 17; TEMP 36.4; O2SAT 98
[2024-03-10 01:25] VITALS: BP 133/71; PULSE 62; RESP 17; TEMP 36.4; O2SAT 98
== END 2024-03-10 01:25 | disposition home or self-care (01) ==
PROVIDERS: Registered Nurse Emergency; Emergency Provider Emergency Medicine
DX: K13.79 Other lesions of oral mucosa (principal); I10 Essential (primary) hypertension; R20.2 Paresthesia of skin; E03.9 Hypothyroidism, unspecified
CPT/HCPCS: 36415; 80053; 84484; 84702; 85025; 93005; 99283; 99284

== ENCOUNTER → 2024-03-09 19:33 | Outpatient (BNV) | payer OTHER, SELFPAY | PROVIDERS: Emergency Provider Emergency Medicine; Visit Provider Internal Medicine Cardiovascular Disease | DX: R42 Dizziness and giddiness (principal) | CPT/HCPCS: 93010 ==

== ENCOUNTER 2024-03-14 10:19 | Outpatient (REF) | payer OTHER, SELFPAY ==
[2024-03-14 10:38] LABS: MANUAL DIFF FLAG NO
[2024-03-14 11:20] LABS: Basophils Percent Auto 0.7 % (0-2); Eosinophils Absolute Auto 0.1 X10*3/uL (0.0-0.4); Eosinophils Percent Auto 1.2 % (0-4); Hematocrit 37.1 % (37.0-47.0); Imm Gran Abs Auto 0.02 X10*3/uL (0.00-0.03); Imm Gran Pct Auto 0.3 % (0.0-0.4); Lymphocytes Absolute Auto 1.9 X10*3/uL (1.2-4.9); Lymphocytes Percent Auto 32.4 % (20-40); Mean Corpuscular HGB Conc 32.3 g/dl (31.0-35.0); Mean Corpuscular Volume 83.4 fL (80.0-98.0); Mean Platelet Volume 10.7 fL (9.4-12.3); Monocytes Absolute Auto 0.3 X10*3/uL (0.1-1.2); Monocytes Percent Auto 5.6 % (2-11); Neutrophils Absolute Auto 3.5 x10*3/uL (2.0-8.3); Neutrophils Percent Auto 59.8 % (45-73); Platelet Count 300 X10*3/uL (160-400); Red Blood Count 4.45 X10*6/uL (4.20-5.50); Red Cell Distribution Width 13.2 % (11.0-16.0); White Blood Count 5.9 X10*3/uL (4.8-10.8)
[2024-03-14 12:06] LABS: Alanine Aminotransferase 12 U/L (0-31); Albumin Level 4.5 g/dL (3.5-5.0); Alkaline Phosphatase 93 U/L (39-117); Anion Gap 14 (12-20); Aspartate Amino Transferase 16 U/L (5-31); Bilirubin Total 0.3 mg/dL (0.0-1.0); Blood Urea Nitrogen 8 mg/dL (9-16); Calcium 9.4 mg/dL (8.4-10.2); Carbon Dioxide 22 mmol/L (22-29); Chloride 107 mmol/L (96-108); Cholesterol 185 mg/dL (<200); Estimated Glomerular Filt Rate > 60; Glucose Fasting 96 mg/dL (60-99); HDL Cholesterol 39 mg/dL (>40); LDL Cholesterol Calculated 121 mg/dL (<100); Potassium 4.4 mmol/L (3.3-5.1); Sodium 139 mmol/L (135-145); Total Protein 7.8 g/dL (6.5-8.0); Triglycerides 125 mg/dL (<150)
== END 2024-03-14 10:20 | disposition home or self-care (01) ==
LOC: HO.LAB 10:19
PROVIDERS: Visit Provider Nurse Practitioner Family
DX: Z00.00 Encounter for general adult medical examination without abnormal findings (principal); E03.9 Hypothyroidism, unspecified
CPT/HCPCS: 36415; 80053; 80061; 84443; 85025

== ENCOUNTER 2024-03-15 13:03 | Outpatient (AMB) | payer OTHER, SELFPAY ==
--- NOTE | 2024-03-15 13:04 | A.OFFPC_ITS ---
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: No Accompanied by: Self / Same As Patient Allergies No Known Allergies [No Known Allergies*] Allergy (Verified 03/15/24 13:29) Medication List - Last Reconciled 03/15/24 by Lyubov Cline CNP blood pressure test kit-large As directed levothyroxine (Synthroid) 137 mcg PO DAILY 90 days lisinopril 5 mg PO BID 90 days Tobacco use date assessed: 03/15/24 Dental Screening Dental Screen Date: 03/15/24 Did you have a dental visit in the last 12 months?: Yes Did you have a dental problem in the last 6 months where you did not have access to dental care?: No Was dental information given to patient?: Patient has dentist HPI HPI Comments History of Present Illness Details 38-year-old female presents for transfer of care and an extended physical exam Her former PCP is WILMAN who is no longer with the practice She has history of hypertension and hypothyroidism. She is on lisinopril 5 mg twice daily and levothyroxine 137 mcg daily. She admits to taking her medications as prescribed without adverse reactions She notes that she generally eats healthy and sleeps well. She denies structured/routine exercise She offers no complaints and denies acute symptoms at this time Last pap smear was on 01/27/2024: normal [facility] Medical History History of LEEP (loop electrosurgical excision procedure) of cervix complicating Cholecystectomy planned Hypothyroidism Hypertension Surgical History Hx of cholecystectomy Family History (Updated 03/15/24 @ 13:18 by SEAN Newsome) Mother Diabetes HTN (hypertension) Social History Household Members: Significant Other Housing: Apartment Alcohol intake: current Alcohol intake frequency: holidays/special occasions only Patient Tobacco Use Status: Never used Tobacco e-Cigarette/Vaping Use: Never Used service: No Current occupational status: employed Current occupation: [employer] Sexual orientation: Straight/Heterosexual Gender identity: Female Cognitive needs: No Hearing needs: No Vision needs: Yes Female Reproductive History Menstrual Age of Menarche: 13 Questionnaire PHQ-9 Over the last 2 weeks, how often have you been bothered by any of the following problems? 1. Little interest or pleasure in doing things: not at all 2. Feeling down, depressed, or hopeless: not at all 3. Trouble falling or staying asleep, or sleeping too much: not at all 4. Feeling tired or having little energy: not at all 5. Poor appetite or overeating: not at all 6. Feeling bad about yourself - or that you are a failure or have let yourself or your family down: not at all 7. Trouble concentrating on things, such as reading the newspaper or watching television: not at all 8. Moving or speaking so slowly that other people could have noticed. Or the opposite - being so fidgety or restless that you have been moving around a lot more than usual: not at all 9. Thoughts that you would be better off or of hurting yourself in some way: not at all Total score: 0 Depression Screening Interpretation: Negative Depression Screening Done: Yes 33458 - PHQ-9 Billing: Yes Source: Developed by Drs. Rinku Horner, Carina Alvarez, Dev Mccarthy and colleagues, with an educational jerzy from [employer]. Thrive Questionnaire Date Thrive assessed: 03/15/24 I am a: Patient What is your living situation today?: I have a steady place to live Within the past 12 months, did the food you bought not last and you didn't have the money to get more?: Never true Within the past 12 months, did you worry whether your food would run out before you got money to buy more?: Never true Do you have trouble paying for medicines?: No Do you have trouble getting transportation to medical appointments?: No Do you have trouble paying your heating and electricity bill?: No Do you have trouble taking care of your child, family member or friend?: No Do you have trouble with day-to-day activities such as bathing, preparing meals, shopping, managing finances, etc.?: No Are you currently unemployed and looking for a job?: No Are you interested in more education?: Yes Please select the resources that you would like help with: Education and None Currently or been in a relationship where the following occur: no concerns reported THRIVE Score: 0 AUDIT C Alcohol Use Questionnaire (AUDIT-C) 1. How often do you have a drink containing alcohol?: Monthly or less 2. How many drinks containing alcohol do you have on a typical day when you are drinking?: 1 or 2 3. How often do you have six or more drinks on one occasion?: Never Total Score: 1 MARTHA-7 AMB Questionnaire MARTHA-7 Date MARTHA - 7 assessed: 03/15/24 Feeling nervous, anxious, or on edge: 0 = Not at all Not being able to stop or control worryin = Not at all Worrying too much about different things: 0 = Not at all Trouble relaxin = Not at all Being so restless that it is hard to sit still: 0 = Not at all Becoming easily annoyed or irritable: 0 = Not at all Feeling afraid as if something awful might happen: 0 = Not at all Total MARTHA-7 score (0-4 normal; 5-9 mild; 10-14 moderate; 15-21 severe): 0 Source: Developed by Drs. Rinku Horner, Carina Alvarez, Dev Mccarthy and colleagues, with an educational jerzy from [employer]. MARTHA-7 Assessment Billing MARTHA-7 Assessment Tool: MARTHA-7 Assessment 20074 Review of Systems Const Details: Denies chills, Denies fatigue, Denies fever(s), Denies headache(s) and Denies weakness HEENT Denies change in vision, Denies dizziness, Denies headache(s), Denies hearing loss, Denies nasal congestion, Denies sinus pain, Denies sinus pressure and Denies sore throat Card Denies chest pain, Denies lightheadedness, Denies dyspnea and Denies other (palpitations) Resp Denies cough, Denies dyspnea and Denies wheezing GI Denies abdominal pain, Denies melena, Denies hematochezia, Denies change in bowel habits, Denies dyspepsia and Denies nausea Denies hematuria and Denies dysuria Musc Denies abnormal gait, Denies myalgias, Denies arthralgias, Denies numbness and Denies tingling Skin/Breast Denies rash, Denies unusual bruising and Denies wounds Neuro Denies abnormal gait, Denies dizziness, Denies headache(s), Denies memory loss, Denies numbness, Denies Sensory deficit (Neuro), Denies tingling and Denies weakness Psych Denies anxiety, Denies depression and Denies memory loss Endo Denies cold intolerance, Denies fatigue, Denies heat intolerance, Denies polydipsia and Denies polyuria Bong/Lymph Denies easy bleeding and Denies easy bruising Aller/Immun Denies wheezing Physical exam (Primary Care) Vital Signs: Last Vital Signs Temp 97.2 F 03/15/24 13:05 Pulse 84 03/15/24 13:05 Resp 13 03/15/24 13:05 BP 122/70 03/15/24 13:05 Pulse Ox 98 03/15/24 13:05 Oxygen Delivery Method Room Air 03/15/24 13:05 BMI result Body Mass Index 29.9 Tobacco/Smoking Status: Tobacco use Status Tobacco use date assessed 03/15/24 03/15/24 13:19 Patient Tobacco Use Status Never used Tobacco 03/15/24 13:05 e-Cigarette/Vaping Use Never Used 03/15/24 13:05 PHQ-9: PHQ-9 Score PHQ-9: Total score 0 03/15/24 13:19 Depression Screening Interpretation: Negative Thrive Assessment: Date of Thrive Assessment Date Thrive assessed 03/15/24 03/15/24 13:19 Currently or been in a relationship where the following occur: no concerns reported Const Other: General: no acute distress, well developed, alert and awake Nutritional Appearance: well nourished Orientation/consciousness: patient oriented x3 HENMT Head: Yes normocephalic and Yes atraumatic Ears: hearing grossly normal bilaterally and TM's normal bilaterally General nose exam: Normal external nose present and Normal nares present Mouth: Normal oral and palatal mucosa present and moist mucous membranes Teeth and gingiva: dentition normal Throat: Yes oropharynx normal Eyes Pupils: Equal, round and reactive pupils present and Pupil accommodation reflex normal EOM: EOMs intact bilaterally Neck Neck: Yes normal visual inspection, Yes no lymphadenopathy and Yes trachea midline Thyroid: Thyroid normal Carotids: no bruits Lymphatic: no lymphadenopathy noted Chest Chest palpation & inspection: normal inspection of the chest Resp Effort & Inspection: normal respiratory effort Auscultation: clear to auscultation bilaterally Cardio Rate: regular rate Rhythm: regular rhythm Heart sounds: S1 normal heart sound present, S2 normal heart sound present, no gallops, no murmurs and no rubs Bruits: no abdominal aortic bruits and no carotid bruits GI Palpation (GI): No Abdominal aortic bruit present, Soft to palpation, nontender, No hepatosplenomegaly present and No Rebound tenderness present Auscultation: normal bowel sounds General: Yes no CVA tenderness Back/Spine/Pelvis Back: no CVA tenderness Cervical Spine: cervical ROM normal and No Cervical spine tenderness Thoracic/Lumbar Spine: thoraco-lumbar ROM normal, No pain with thoraco-lumbar ROM, No thoracic spinal tenderness and No lumbar spinal tenderness Skin General: warm and dry. Normal skin color. Normal skin turgor Lesions: no lesions Rashes: no rashes Trauma: no lacerations or abrasions Wounds: no wounds Nails: normal Neuro General: patient oriented x3, gait normal and CN's II-XI intact bilaterally Cranial nerves: Yes Equal, round and reactive pupils present Cognition (Neuro): normal cognition Gait exam (Neuro): Normal gait present Motor exam (neuro): 5/5 motor strength present throughout Sensory Exam: No Sensory deficit (Neuro) Deep tendon reflexes (DTR's): Right patellar reflex intensity grade: 2+ and Left patellar reflex intensity grade: 2+ Extrem General: Yes normal to inspection, No edema and No calf tenderness Psych Appearance: grossly normal Affect: normal affect Attitude: cooperative Thought process: Normal thought process present Assessment and Plan Assessment & Plan (1) Normal physical exam: Code(s): Z00.00 - Encounter for general adult medical examination without abnormal findings Plan: No significant physical restrictions limitations noted Continue current treatment regimen Healthy diet and routine exercise encouraged Follow-up in 3 months for hypertension and hypothyroidism or return sooner with symptoms or concerns Verbalized understanding and agreed with treatment plan (2) Hypertension: Code(s): I10 - Essential (primary) hypertension Plan: Blood pressure is 122/70, within goal of less than 140/90 Will change lisinopril to 10 mg once daily for compliance. Advised to take as prescribed Low-sodium diet encouraged Follow-up in 3 months Verbalized understanding and agreed with treatment plan (3) Hypothyroidism: Code(s): E03.9 - Hypothyroidism, unspecified Plan: Recent TSH is normal Continue current treatment regimen Advised to get TSH/T4 blood work done before her next visit Follow-up in 3 months Verbalized understanding and agreed with treatment plan (4) Low HDL (under 40): Code(s): E78.6 - Lipoprotein deficiency Plan: Recent labs reviewed; unremarkable findings except for slightly low HDL, 39 Advised to limit foods high in saturated fat and avoid foods high in trans fat Routine exercise encouraged Will monitor HDL level periodically Verbalized understanding and agreed with the treatment plan Orders: Orders TSH reflex Free T4 3 Months E03.9 - Hypothyroidism, unspecified Medications: New lisinopril 10 mg PO DAILY 90 days 90 tabs 1RF Discontinued lisinopril Discontinued Reason: Doctor's Order 5 mg PO BID 90 days 180 tabs 3RF I10 - Essential (primary) hypertension Coding Level of Care Code Est Pt Level 4 (14878) Est Pt Prev Care 18-39y(34723) Diagnoses Normal physical exam Z00.00 Hypertension I10 Hypothyroidism E03.9 Low HDL (under 40) E78.6 Additional Codes MARTHA-7 Assessment Billing - MARTHA-7 Assessment Tool: MARTHA-7 Assessment 20350 ([id number])
[2024-03-15 13:05] VITALS: BP 122/70; PULSE 84; RESP 13; TEMP 36.2; O2SAT 98; BMI 29.9
== END 2024-03-15 13:44 | disposition home or self-care (01) ==
PROVIDERS: Visit Provider Nurse Practitioner Family
DX: Z00.00 Encounter for general adult medical examination without abnormal findings (principal); I10 Essential (primary) hypertension; E03.9 Hypothyroidism, unspecified; E78.6 Lipoprotein deficiency
CPT/HCPCS: 99213; 99395

== ENCOUNTER 2024-06-30 11:27 | Outpatient (AMB) | payer OTHER, SELFPAY ==
--- NOTE | 2024-06-30 11:29 | MHC.PC.OV ---
Vital Signs 06/30/24 11:43 Height 5 ft 6 in Weight 190 lb 6 oz BMI 30.7 BP 138/80 Blood Pressure Location Lt brachial Position Sitting Respiration 16 Pulse 67 Pulse Source Pulse Oximeter Temp 98.4 F Temp Source Oral Pulse Oximetry (%) 98 Oxygen Delivery Method Room Air Intake Visit Reasons: F/U HTN, hypothyroidism Intake Note: patient here to follow up on HTN, Hypothyroidism Med Dir Required: No Is last menstrual period known: Yes Last menstrual period: 05/26/24 Post menopausal: No Patient : No Allergies No Known Allergies [No Known Allergies*] Allergy (Verified 06/30/24 11:42) Tobacco use date assessed: 06/30/24 Dental Screening Dental Screen Date: 06/30/24 Did you have a dental visit in the last 12 months?: Yes Did you have a dental problem in the last 6 months where you did not have access to dental care?: No Was dental information given to patient?: Patient has dentist HPI HPI Comments History of Present Illness Details 39-year-old female presents for hypertension and hypothyroidism follow-up She admits to taking her medications as prescribed without adverse reactions She denies acute symptoms symptoms She did not get TSH/T4 blood work done [facility] Medical History History of LEEP (loop electrosurgical excision procedure) of cervix complicating Cholecystectomy planned Hypothyroidism Hypertension Surgical History Hx of cholecystectomy Family History (Updated 03/15/24 @ 13:18 by SEAN Newsome) Mother Diabetes HTN (hypertension) Social History Household Members: Significant Other Housing: Apartment Alcohol intake: current Alcohol intake frequency: holidays/special occasions only Patient Tobacco Use Status: Never used Tobacco e-Cigarette/Vaping Use: Never Used service: No Current occupational status: employed Current occupation: [employer] Sexual orientation: Straight/Heterosexual Gender identity: Female Cognitive needs: No Hearing needs: No Vision needs: Yes Female Reproductive History Menstrual Age of Menarche: 13 Date of last menstrual period: 05/26/24 Questionnaire Thrive Questionnaire Date Thrive assessed: 03/15/24 MARTHA-7 AMB Questionnaire MARTHA-7 Date MARTHA - 7 assessed: 03/15/24 Source: Developed by Drs. Rinku Horner, Carina Alvarez, Dev Mccarthy and colleagues, with an educational jerzy from [employer]. Review of Systems Const Details: Const Denies chills, Denies fatigue, Denies fever(s), Denies headache(s) and Denies weakness ENT Denies dizziness and Denies headache(s) Card Denies chest pain, Denies lightheadedness, Denies dyspnea and Denies other (Palpitations) Resp Denies cough, Denies dyspnea, Denies wheezing and Denies other ( shortness of breath) GI Denies abdominal pain, Denies melena, Denies hematochezia, Denies change in bowel habits, Denies dyspepsia and Denies nausea Denies hematuria and Denies dysuria Musc Denies abnormal gait, Denies myalgias, Denies arthralgias, Denies numbness and Denies tingling Skin/Breast Denies rash, Denies unusual bruising and Denies wounds Neuro Denies abnormal gait, Denies dizziness, Denies headache(s), Denies memory loss, Denies numbness, Denies Sensory deficit (Neuro), Denies tingling and Denies weakness Psych Denies anxiety, Denies depression, Denies memory loss Endo Denies cold intolerance, Denies fatigue, Denies heat intolerance, Denies polydipsia and Denies polyuria Aller/Immun Denies wheezing Physical exam (Primary Care) Vital Signs: Last Vital Signs Temp 98.4 F 06/30/24 11:43 Pulse 67 06/30/24 11:43 Resp 16 06/30/24 11:43 BP 138/80 06/30/24 11:43 Pulse Ox 98 06/30/24 11:43 Oxygen Delivery Method Room Air 06/30/24 11:43 BMI result Body Mass Index 30.7 Tobacco/Smoking Status: Tobacco use Status Tobacco use date assessed 06/30/24 06/30/24 11:43 Patient Tobacco Use Status Never used Tobacco 06/30/24 11:32 e-Cigarette/Vaping Use Never Used 06/30/24 11:32 Thrive Assessment: Date of Thrive Assessment Date Thrive assessed 03/15/24 06/30/24 11:32 Const Other: General: no acute distress and well developed Nutritional Appearance: well nourished Orientation/consciousness: patient oriented x3 HENKS Head: Yes normocephalic and Yes atraumatic Eyes General: appearance normal, both eyes and all related structures Pupils: Equal, round and reactive pupils present EOM: EOMs intact bilaterally Resp Effort & Inspection: normal respiratory effort Auscultation: clear to auscultation bilaterally Cardio Rate: regular rate Rhythm: regular rhythm Heart sounds: S1 normal heart sound present, S2 normal heart sound present, no gallops, no murmurs and no rubs GI Palpation (GI): No Abdominal aortic bruit present, Soft to palpation, nontender, No hepatosplenomegaly present and No Rebound tenderness present Auscultation: normal bowel sounds General: Yes no CVA tenderness Back/Spine/Pelvis Back: no CVA tenderness Cervical Spine: cervical ROM normal and No Cervical spine tenderness Thoracic/Lumbar Spine: thoraco-lumbar ROM normal, No pain with thoraco-lumbar ROM, No thoracic spinal tenderness and No lumbar spinal tenderness Extrem General: Yes normal to inspection, No edema and No calf tenderness Skin General: warm and dry. Normal skin color. Normal skin turgor Neuro General: patient oriented x3, gait normal and no focal neuro deficit Cranial nerves: Yes Equal, round and reactive pupils present Cognition (Neuro): normal cognition Gait exam (Neuro): Normal gait present Sensory Exam: No Sensory deficit (Neuro) Psych Appearance: grossly normal Affect: normal affect Attitude: cooperative Thought process: Normal thought process present Assessment and Plan Assessment & Plan (1) Hypertension: Code(s): I10 - Essential (primary) hypertension Plan: Resting blood pressure is 138/80, slightly within goal of less than 140/90 Will increase lisinopril to 20 mg daily. Advised to take as prescribed Low-sodium diet encouraged Follow-up in 3 months or sooner with symptoms or concerns Verbalized understanding and agreed with the treatment plan (2) Hypothyroidism: Code(s): E03.9 - Hypothyroidism, unspecified Plan: She did not get TSH/T4 blood work done. She will do so today. Encouraged to continue current treatment regimen. Will review lab results and make changes as needed. Verbalized understanding and agreed with the plan Medications: New lisinopril 20 mg PO DAILY 90 days 90 tabs 1RF Discontinued lisinopril Discontinued Reason: Doctor's Order 10 mg PO DAILY 90 days 90 tabs 1RF Coding Level of Care Code Est Pt Level 3 (50014) Diagnoses Hypertension I10 Hypothyroidism E03.9
[2024-06-30 11:43] VITALS: BP 138/80; PULSE 67; RESP 16; TEMP 36.9; O2SAT 98; BMI 30.7
== END 2024-06-30 12:23 | disposition home or self-care (01) ==
PROVIDERS: Visit Provider Nurse Practitioner Family
DX: I10 Essential (primary) hypertension (principal); E03.9 Hypothyroidism, unspecified
CPT/HCPCS: 99213

== ENCOUNTER 2024-06-30 12:15 | Outpatient (REF) | payer OTHER, SELFPAY ==
[2024-06-30 14:58] LABS: Appearance Urine Clear; Color Urine Yellow; Glucose Urine UA Negative (Negative); Leukocyte Esterase Urine Small (1+) (Negative); Nitrite Urine Negative (Negative); UMIC TRIGGER UACC YES; Urine Blood Negative (Negative); Urine Ketones Negative (Negative); Urine Protein Negative (Neg-Trace)
[2024-06-30 15:09] LABS: Bacteria Urine None Seen (None Seen); Hyaline Casts Urine 0-2 /LPF (0-2); RBC Urine 0-2 /HPF (0-2); UACC Culture Trigger YES
== END 2024-06-30 12:16 | disposition home or self-care (01) ==
LOC: HO.WFDLDS 12:15
PROVIDERS: Visit Provider Nurse Practitioner Family
DX: Z00.00 Encounter for general adult medical examination without abnormal findings (principal); E03.9 Hypothyroidism, unspecified; N39.0 Urinary tract infection, site not specified
CPT/HCPCS: 36415; 81001; 84443; 87086

== ENCOUNTER 2024-10-03 11:01 | Outpatient (REF) | payer OTHER, SELFPAY ==
[2024-10-03 18:59] LABS: Influenza A PCR NEGATIVE (Negative); Influenza B PCR NEGATIVE (Negative); Resp Syncy Virus RNA Qual PCR NEGATIVE (Negative); SARS COV2 PCR INHOUSE NEGATIVE (Negative)
== END 2024-10-03 11:02 | disposition home or self-care (01) ==
LOC: HO.LAB 11:01
PROVIDERS: Visit Provider Nurse Practitioner Family
DX: I10 Essential (primary) hypertension (principal); J06.9 Acute upper respiratory infection, unspecified
CPT/HCPCS: 0241U; 96127

== ENCOUNTER 2024-10-03 11:01 | Outpatient (AMB) | payer OTHER, SELFPAY ==
--- NOTE | 2024-10-03 11:20 | MHC.PC.OV ---
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 Is last menstrual period known: Yes Last menstrual period: 09/26/24 Post menopausal: No Patient : No Allergies No Known Allergies [No Known Allergies*] Allergy (Verified 10/03/24 11:45) Medication List - Last Reconciled 10/03/24 by Lyubov Cline CNP blood pressure test kit-large As directed levothyroxine (Synthroid) 137 mcg PO DAILY 90 days lisinopril 20 mg PO DAILY 90 days Tobacco use date assessed: 10/03/24 Dental Screening Dental Screen Date: 10/03/24 Did you have a dental visit in the last 12 months?: Yes Did you have a dental problem in the last 6 months where you did not have access to dental care?: No Was dental information given to patient?: Patient has dentist HPI HPI Comments History of Present Illness Details The patient is a 39-year-old female presenting with an acute upper respiratory tract infection and management of essential hypertension. The patient reports symptoms consistent with an upper respiratory tract infection, including a sore throat, nasal congestion, and cough productive of dark green mucus. She has experienced nosebleeds and denies any fever or body aches but mentioned a sore throat and a single night of fever previously. The symptoms started with a cold about three weeks ago, and she reported being the first in her household to experience these symptoms. The condition is associated with headaches. She reports adherence to her prescribed lisinopril medication. She has been consistently limiting salt intake. Her hypertension management requires review, as current blood pressure readings exceed the target of less than 130 mmHg. [facility] Medical History History of LEEP (loop electrosurgical excision procedure) of cervix complicating Cholecystectomy planned Hypothyroidism Hypertension Surgical History Hx of cholecystectomy Family History (Updated 03/15/24 @ 13:18 by SEAN Newsome) Mother Diabetes HTN (hypertension) Social History Household Members: Significant Other Housing: Apartment Alcohol intake: current Alcohol intake frequency: holidays/special occasions only Patient Tobacco Use Status: Never used Tobacco e-Cigarette/Vaping Use: Never Used service: No Current occupational status: employed Current occupation: [employer] Sexual orientation: Straight/Heterosexual Gender identity: Female Cognitive needs: No Hearing needs: No Vision needs: Yes Female Reproductive History Menstrual Age of Menarche: 13 Date of last menstrual period: 09/26/24 Questionnaire PHQ-9 Over the last 2 weeks, how often have you been bothered by any of the following problems? 1. Little interest or pleasure in doing things: not at all 2. Feeling down, depressed, or hopeless: not at all 3. Trouble falling or staying asleep, or sleeping too much: not at all 4. Feeling tired or having little energy: not at all 5. Poor appetite or overeating: not at all 6. Feeling bad about yourself - or that you are a failure or have let yourself or your family down: not at all 7. Trouble concentrating on things, such as reading the newspaper or watching television: not at all 8. Moving or speaking so slowly that other people could have noticed. Or the opposite - being so fidgety or restless that you have been moving around a lot more than usual: not at all 9. Thoughts that you would be better off or of hurting yourself in some way: not at all Total score: 0 Depression Screening Interpretation: Negative Depression Screening Done: Yes Source: Developed by Drs. Rinku Horner, Carina Alvarez, Dev Mccarthy and colleagues, with an educational jerzy from [employer]. Thrive Questionnaire Date Thrive assessed: 10/03/24 I am a: Patient What is your living situation today?: I have a steady place to live Within the past 12 months, did the food you bought not last and you didn't have the money to get more?: I choose not to answer this question Within the past 12 months, did you worry whether your food would run out before you got money to buy more?: I choose not to answer this question Do you have trouble paying for medicines?: I choose not to answer this question Do you have trouble getting transportation to medical appointments?: No Do you have trouble paying your heating and electricity bill?: I choose not to answer this question Do you have trouble taking care of your child, family member or friend?: I choose not to answer this question Do you have trouble with day-to-day activities such as bathing, preparing meals, shopping, managing finances, etc.?: I choose not to answer this question Are you currently unemployed and looking for a job?: No Are you interested in more education?: No Please select the resources that you would like help with: None Currently or been in a relationship where the following occur: I choose not to answer THRIVE Score: 0 AUDIT C Alcohol Use Questionnaire (AUDIT-C) 1. How often do you have a drink containing alcohol?: Monthly or less 2. How many drinks containing alcohol do you have on a typical day when you are drinking?: 1 or 2 3. How often do you have six or more drinks on one occasion?: Never Total Score: 1 MARTHA-7 AMB Questionnaire MARTHA-7 Date MARTHA - 7 assessed: 10/03/24 Feeling nervous, anxious, or on edge: 0 = Not at all Not being able to stop or control worryin = Not at all Worrying too much about different things: 0 = Not at all Trouble relaxin = Not at all Being so restless that it is hard to sit still: 0 = Not at all Becoming easily annoyed or irritable: 1 = Several days Feeling afraid as if something awful might happen: 0 = Not at all Total MARTHA-7 score (0-4 normal; 5-9 mild; 10-14 moderate; 15-21 severe): 1 Source: Developed by Drs. Rinku Horner, Carina Alvarez, Dev Mccarthy and colleagues, with an educational jerzy from [employer]. MARTHA-7 Assessment Billing MARTHA-7 Assessment Tool: MARTHA-7 Assessment 87649 Review of Systems Const Details: Const Denies chills, Denies fatigue, Denies fever(s), Denies headache(s) and Denies weakness ENT Denies dizziness and Denies headache(s) Card Denies chest pain, Denies lightheadedness, Denies dyspnea and Denies other (Palpitations) Resp Denies cough, Denies dyspnea, Denies wheezing and Denies other ( shortness of breath) GI Denies abdominal pain, Denies melena, Denies hematochezia, Denies change in bowel habits, Denies dyspepsia and Denies nausea Denies hematuria and Denies dysuria Musc Denies abnormal gait, Denies myalgias, Denies arthralgias, Denies numbness and Denies tingling Skin/Breast Denies rash, Denies unusual bruising and Denies wounds Neuro Denies abnormal gait, Denies dizziness, Denies headache(s), Denies memory loss, Denies numbness, Denies Sensory deficit (Neuro), Denies tingling and Denies weakness Psych Denies anxiety, Denies depression, Denies memory loss Endo Denies cold intolerance, Denies fatigue, Denies heat intolerance, Denies polydipsia and Denies polyuria Aller/Immun Denies wheezing Physical exam (Primary Care) Vital Signs: Last Vital Signs Temp 97.9 F 10/03/24 11:25 Pulse 79 10/03/24 11:25 Resp 16 10/03/24 11:25 BP 147/79 H 10/03/24 11:25 Pulse Ox 97 10/03/24 11:25 Oxygen Delivery Method Room Air 10/03/24 11:25 BMI result Body Mass Index 31.5 Tobacco/Smoking Status: Tobacco use Status Tobacco use date assessed 10/03/24 10/03/24 11:30 Patient Tobacco Use Status Never used Tobacco 10/03/24 11:23 e-Cigarette/Vaping Use Never Used 10/03/24 11:23 PHQ-9: PHQ-9 Score PHQ-9: Total score 0 10/03/24 11:47 Depression Screening Interpretation: Negative Thrive Assessment: Date of Thrive Assessment Date Thrive assessed 10/03/24 10/03/24 11:30 Currently or been in a relationship where the following occur: I choose not to answer Const Other: General: no acute distress and well developed Nutritional Appearance: well nourished Orientation/consciousness: patient oriented x3 HENMT Head is normocephalic Bilateral ear canal and TM are normal Nasal turbinates and oropharynx are pink and moist Sinuses are nontender with palpation No auricular or cervical lymphadenopathy Eyes General: appearance normal, both eyes and all related structures Pupils: Equal, round and reactive pupils present EOM: EOMs intact bilaterally Resp Effort & Inspection: normal respiratory effort Auscultation: clear to auscultation bilaterally Cardio Rate: regular rate Rhythm: regular rhythm Heart sounds: S1 normal heart sound present, S2 normal heart sound present, no gallops, no murmurs and no rubs GI Palpation (GI): No Abdominal aortic bruit present, Soft to palpation, nontender, No hepatosplenomegaly present and No Rebound tenderness present Auscultation: normal bowel sounds General: Yes no CVA tenderness Back/Spine/Pelvis Back: no CVA tenderness Cervical Spine: cervical ROM normal and No Cervical spine tenderness Thoracic/Lumbar Spine: thoraco-lumbar ROM normal, No pain with thoraco-lumbar ROM, No thoracic spinal tenderness and No lumbar spinal tenderness Extrem General: Yes normal to inspection, No edema and No calf tenderness Skin General: warm and dry. Normal skin color. Normal skin turgor Neuro General: patient oriented x3, gait normal and no focal neuro deficit Cranial nerves: Yes Equal, round and reactive pupils present Cognition (Neuro): normal cognition Gait exam (Neuro): Normal gait present Sensory Exam: No Sensory deficit (Neuro) Psych Appearance: grossly normal Affect: normal affect Attitude: cooperative Thought process: Normal thought process present Coding Level of Care Code Est Pt Level 4 (72761) Diagnoses Hypertension I10 Viral upper respiratory illness J06.9 Additional Codes MARTHA-7 Assessment Billing - MARTHA-7 Assessment Tool: MARTHA-7 Assessment 88181 ([id number]) Assessment & Plan Assessment & Plan (1) Hypertension: Code(s): I10 - Essential (primary) hypertension Category: Medical Plan: Reinforced adherence to lisinopril as prescribed. Advised dietary salt limitation. Recommended re-evaluation of blood pressure. (2) Viral upper respiratory illness: Code(s): J06.9 - Acute upper respiratory infection, unspecified Category: Medical Plan: Likely viral illness though possibly allergies. No exam evidence of bacterial infection Viral illness There is no antibiotic medication for viruses.? They must run their course.? Most average 5-7 days but 7-10 days is not uncommon and up to 14 days is still possible.? A cough is often the last symptom to resolve and this can last for weeks in some cases. Rest Hydrate well -? Drink plenty of fluids.? Especially water. Tylenol or ibuprofen for muscle aches, headache, fever/discomfort Cannot rule out COVID-19/RSV/Flu infection Nasal swab acquired and will be sent to the lab May also take zyrtec daily Return for new or worsening symptoms Verbalized understanding and agreed with treatment plan. Plan I discussed with the patient the likelihood that her symptoms are due to a viral upper respiratory tract infection, possibly exacerbated by allergies. We reviewed the importance of daily antihistamine use and adherence to existing antihypertensive therapy. Given the current blood pressure readings, I plan to monitor this closely and reassessment was recommended. Follow-up will occur in three weeks to evaluate symptom progression and blood pressure control. Orders: Orders SARS-CoV2/FLU/RSV Today J06.9 - Acute upper respiratory infection, unspecified Patient Instructions: - Continue taking lisinopril daily as prescribed. - Start taking an antihistamine such as Zyrtec daily. - Limit dietary salt intake. - Return in three weeks for a blood pressure check and reassessment. - Seek medical attention if symptoms worsen or if there is no resolution of symptoms. Patient was informed and verbally consented to the use of an ambient scribe for clinic note documentation during this visit.
[2024-10-03 11:25] VITALS: BP 147/79; PULSE 79; RESP 16; TEMP 36.6; O2SAT 97; BMI 31.5
== END 2024-10-03 11:57 | disposition home or self-care (01) ==
PROVIDERS: Visit Provider Nurse Practitioner Family
DX: I10 Essential (primary) hypertension (principal); J06.9 Acute upper respiratory infection, unspecified

== ENCOUNTER 2025-06-14 10:30 | Outpatient (REF) | payer OTHER, SELFPAY ==
--- OUTSIDE RECORDS SUMMARY | 2025-06-14 12:22 | XMS_ITS | Continuity of Care Document ---
Author Organization [facility] Address [address] [facility] [address] [place] [address] Insurance Providers Payer Plan Claims Address Claims Phone Policy Number Group Number Relation Employer Guarantor Name Guarantor Guarantor Address Guarantor Phone [facility] [address] [address], [place] [address] tel:[phone] [id number] [phone] Self Audra Uriarte [address] [place] [address] [id number] [address] Problems Condition ICD9 code ICD10 code SNOMED code Start Date End Date S tatus Encounter for screening for other metabolic disorders Z13.228 Results Test Value / Unit Interpretation Reference Ran Comp. Metabolic Panel (14)[[id number]] Collected: 07/20/2023 04:34 PM Specimen Received: 07/20/2023 05:00 AM Source: [facility] Glucose [217974] 103 mg/dL H 70-99 mg/dL BUN [185614] 8 mg/dL 6-20 mg/dL Creatinine [566361] 0.60 mg/dL 0.57-1.0 0 mg/dL eGFR [328319] 118 mL/min/1.73 >59 mL/min/ 1.73 BUN/Creatinine Ratio [188857] 13 9-23 Sodium [401330] 139 mmol/L 134-144 mmol /L Potassium [777898] 4.4 mmol/L 3.5-5.2 m mol/L Chloride [804107] 102 mmol/L 96-106 mmo l/L Carbon Dioxide, Total [250362] 20 mmol/L 20-29 mmol/L Calcium [647523] 9.2 mg/dL 8.7-10.2 mg /dL Protein, Total [154898] 7.4 g/dL 6.0- 8.5 g/dL Albumin [915193] 4.6 g/dL 3.9-4.9 g/d L Globulin, Total [310731] 2.8 g/dL 1.5 -4.5 g/dL A/G Ratio [551857] 1.6 1.2-2.2 Bilirubin, Total [830351] 0.2 mg/dL 0. 0-1.2 mg/dL Alkaline Phosphatase [674233] 95 IU/L 44-121 IU/L AST (SGOT) [239252] 23 IU/L 0-40 IU/ L ALT (SGPT) [941753] 28 IU/L 0-32 IU/ L Lipid Panel[086752] Collected: 07/20/2023 04:34 PM Specimen Received: 07/20/2023 05:00 AM Source: [facility] Cholesterol, Total [755939] 221 mg/dL H 100-199 mg/dL Triglycerides [850748] 326 mg/dL H 0-149 mg/dL HDL Cholesterol [519190] 37 mg/dL L >39 mg/dL VLDL Cholesterol Kristian [254752] 58 mg/dL H 5-40 mg/dL LDL Chol Calc (NIH) [148417] 126 mg/dL H 0-99 mg/dL Hemoglobin A1c[639916] Collected: 07/20/2023 04:34 PM Specimen Received: 07/20/2023 05:00 AM Source: [facility] Hemoglobin A1c [309926] 5.8 % H 4.8- 5.6 % . Prediabetes: 5.7 - 6.4 Julienne betes: >6.4 Glycemic control for adults with diabetes: 7.0 Allergies, adverse reactions, alerts No known allergies and adverse reactions Medications No administered medications reported Vital Signs No vital signs reported Social History No smoking Hx information available
== END 2025-06-14 10:31 | disposition home or self-care (01) ==
LOC: HO.LNP 10:30
PROVIDERS: PCP Nurse Practitioner Family; Visit Provider Obstetrics & Gynecology
DX: Z01.419 Encounter for gynecological examination (general) (routine) without abnormal findings (principal); Z11.51 Encounter for screening for human papillomavirus (HPV); Z12.31 Encounter for screening mammogram for malignant neoplasm of breast
CPT/HCPCS: 87626; 88175

== ENCOUNTER 2025-06-14 10:30 | Outpatient (AMB) | payer OTHER, SELFPAY ==
--- NOTE | 2025-06-14 10:34 | MHC.OFFVIS ---
Vital Signs 06/14/25 10:53 Height 5 ft 6 in Weight 192 lb BMI 31.0 Intake Visit Reasons: annual/do not reschedule Allergies No Known Allergies (No Known Allergies*) Allergy (Verified 10/03/24 11:45) HPI Comments Details: Presenting for annual exam. No complaints. Last Pap/HPV was negative in 02/16 No previous screenMammogram [facility] Medical History (Updated 06/14/25 @ 10:54 by Tal Ferrell MD) History of LEEP (loop electrosurgical excision procedure) of cervix complicating Cholecystectomy planned Hypothyroidism Hypertension Surgical History Hx of cholecystectomy Family History Mother Diabetes HTN (hypertension) Social History Household Members: Significant Other Housing: Apartment Alcohol intake: current Alcohol intake frequency: holidays/special occasions only Patient Tobacco Use Status: Never used Tobacco e-Cigarette/Vaping Use: Never Used service: No Current occupational status: employed Current occupation: [employer] Sexual orientation: Straight/Heterosexual Gender identity: Female Cognitive needs: No Hearing needs: No Vision needs: Yes Female Reproductive History Menstrual Age of Menarche: 13 Review of Systems Const All systems reviewed & are unremarkable except as noted in HPI and below Card Reports as per HPI Resp Reports as per HPI GI Reports as per HPI and Reports no additional complaints Reports as per HPI Physical Exam Const General: cooperative, healthy appearing and comfortable Chest Chest palpation & inspection: normal inspection of the chest and normal palpation of entire chest wall Breast/axilla inspection: normal inspection of the breasts and normal inspection of the axillae Breast/axilla palpation: normal palpation of the breasts, normal palpation of the axillae and no axillary lymphadenopathy Resp Effort & Inspection: normal respiratory effort Auscultation: clear to auscultation bilaterally Percussion: percussion normal Cardio Palpation: normal PMI Rate: regular rate Rhythm: regular rhythm Heart sounds: no murmurs and no rubs Peripheral pulses: Peripheral pulses 2+ throughout GI Inspection: Yes normal to inspection Palpation (GI): Soft to palpation, nontender, no guarding, not rigid and No hepatosplenomegaly present Percussion: Yes normal to percussion Auscultation: normal bowel sounds Rectal Exam - Female: deferred General: Yes bladder normal to palpation External Female Exam: No lesion Speculum Exam - Vagina: normal appearance of the vagina, normal palpation, normal vaginal discharge and not erythematous Speculum Exam - Cervix: normal appearance of the cervix and normal palpation Bimanual exam- vagina & uterus: normal bimanual exam, normal palpation, uterine size normal, bladder normal to palpation, consistency normal and normal palpation Bimanual Exam- Adnexa, other: normal adnexae, no masses and no tenderness Assessment & Plan Assessment & Plan (1) Well woman exam: Comment: 09/16 QUETA 1 Code(s): Z01.419 - Encounter for gynecological examination (general) (routine) without abnormal findings Category: Medical Plan: Cotesting done. Mammogram ordered. Counseled the patient about the recommended dietary allowance of 1000 mg of Calcium & 600 IU of vitamin D. The patient was instructed to perform monthly self-breast exams and to schedule an annual exam in a year; All questions answered and the patient verbalized understanding. Instructed the patient to schedule annual exam in a year Orders: Orders MM tomosynthesis screening BI Today Z12.31 - Encounter for screening mammogram for malignant neoplasm of breast Coding Level of Care Code Est Pt Prev Care 40-64y(71126) Diagnoses Well woman exam Z01.419
[2025-06-14 10:53] VITALS: BP 140/80; BMI 31.0
== END 2025-06-14 10:59 | disposition home or self-care (01) ==
LOC: HO.HWS 10:31
PROVIDERS: PCP Nurse Practitioner Family; Visit Provider Obstetrics & Gynecology
DX: Z01.419 Encounter for gynecological examination (general) (routine) without abnormal findings (principal)
CPT/HCPCS: 99396; 99459

== ENCOUNTER 2025-09-07 09:31 | Outpatient (REF) | payer OTHER, SELFPAY | END 2025-09-07 09:32 | disposition home or self-care (01) | LOC: HO.MAMMO 09:31 | PROVIDERS: PCP Nurse Practitioner Family; Visit Provider Obstetrics & Gynecology | DX: Z12.31 Encounter for screening mammogram for malignant neoplasm of breast (principal) | CPT/HCPCS: 77063; 77067 ==

== ENCOUNTER → 2025-09-07 09:32 | Outpatient (BNV) | payer OTHER, SELFPAY | PROVIDERS: PCP Nurse Practitioner Family; Visit Provider Internal Medicine | DX: Z12.31 Encounter for screening mammogram for malignant neoplasm of breast (principal) | CPT/HCPCS: 77063; 77067 ==